=== PATIENT | female | born 2000 | race Caucasian/White ===

== ENCOUNTER 2020-03-03 10:14 | Emergency (ER) | payer OTHER ==
[2020-03-03] MEDS ORDERED: Ondansetron 4 MG/2 ML SDV IVPUSH ONE (10:48)
[2020-03-03] MEDS ORDERED: Dextrose 5%-Lactated Ringers 1,000 ML IV SCH (11:00)
--- NOTE | 2020-03-03 11:11 | EDM.PDOC ---
ED HPI GENERAL MEDICAL PROBLEM - General Chief Complaint: Gastrointestinal Problem Stated Complaint: VOMITING BLOOD Time Seen by Provider: 03/03/20 10:49 Source of Information: Reports: Patient History Limitations: Reports: No Limitations - History of Present Illness INITIAL COMMENTS - FREE TEXT/NARRATIVE: 20-year-old female presents to the ED with recurrent intractable nausea and vomiting starting about 2200 hrs. last night. She reports initial emesis contained a bit of food and then it seemed to turn dark black in color with questionable coffee-ground appearance. This morning the emesis is bright yellow or bilious in color. Patient reports she was out drinking alcohol last evening to excess with multiple different kinds of alcohol. She denies any diarrhea. She believes there was some flecks of blood in her emesis this morning. Does complain of mild headache and fatigue. Onset: Sudden Onset Date: 03/02/20 Onset Time: 22:00 Duration: Minutes: Location: Reports: Abdomen (Upper abdominal pain with recurrent nausea and vomiting.). Denies: Head, Face, Neck, Chest, Back, Pelvis, Lower Extremity, Left Quality: Reports: Ache (Vague pressure in her epigastrium), Other (Waves of nausea.) Severity: Moderate Improves with: Reports: None Worsens with: Reports: Eating (Trying to eat or drink it comes right back up.) Context: Denies: Activity, Exercise, Lifting, Sick Contact, Trauma, Other Associated Symptoms: Reports: Loss of Appetite, Malaise, Nausea/Vomiting, Weakness. Denies: No Other Symptoms, Confusion, Chest Pain, Cough, cough w sputum, Diaphoresis, Fever/Chills, Headaches, Rash, Seizure, Shortness of Breath, Syncope Treatments LEGAL EXECUTIVE: Reports: Other (see below) (None.) Abdominal Pain Score (Numeric/FACES): 3 - Related Data Allergies Allergy/AdvReac Type Severity Reaction Status Date / Time No Known Allergies Allergy Verified 03/03/20 10:24 Home Meds: Home Meds ALPRAZolam [Xanax] 0.5 mg PO QID PRN 03/03/20 [History] Escitalopram Oxalate [Lexapro] 20 mg PO DAILY 03/03/20 [History] Past Medical History - Past Health History Medical/Surgical History: Denies Medical/Surgical History Psychiatric History: Reports: Anxiety, Depression - Infectious Disease History Infectious Disease History: Reports: Novel Coronavirus Social & Family History - Tobacco Use Tobacco Use Status *Q: Never Tobacco User - Caffeine Use Caffeine Use: Reports: Coffee, Energy Drinks, Soda, Tea - Recreational Drug Use Recreational Drug Use: No - Living Situation & Occupation Living situation: Reports: Single Occupation: Employed ED ROS GENERAL - Review of Systems Review Of Systems: See Below Constitutional: Reports: Malaise, Weakness, Fatigue, Decreased Appetite. Denies: Fever, Chills HEENT: Reports: No Symptoms Respiratory: Reports: No Symptoms Cardiovascular: Reports: No Symptoms Endocrine: Reports: Fatigue GI/Abdominal: Reports: Abdominal Pain, Nausea, Vomiting (Intractable nausea and vomiting starting about 2200 hrs. last night.) : Reports: Frequency Musculoskeletal: Reports: No Symptoms Skin: Reports: No Symptoms Neurological: Reports: Headache Psychiatric: Reports: No Symptoms Hematologic/Lymphatic: Reports: No Symptoms Immunologic: Reports: No Symptoms ED EXAM, GI/ABD - Physical Exam Exam: See Below Exam Limited By: No Limitations General Appearance: Alert, WD/WN, Mild Distress, Other (Temperature is 35.9. Heart rate 100 and sinus. Respiratory to 16 with O2 sats 100% room air BP 04/28/1985.) Eyes: Bilateral: Normal Appearance (No scleral icterus or blepharal pallor.) Throat/Mouth: Other Head: Atraumatic (Tongue is moderately dry and coated.), Normocephalic, Other Neck: Normal Inspection, Supple (No outward signs of any head or facial trauma.), Non-Tender, Full Range of Motion. No: Lymphadenopathy (L), Lymphadenopathy (R) Respiratory/Chest: No Respiratory Distress, Lungs Clear, Normal Breath Sounds, No Accessory Muscle Use, Chest Non-Tender Cardiovascular: Normal Peripheral Pulses, Regular Rate, Rhythm, No Edema, No Gallop, No Murmur, No Rub, Tachycardia GI/Abdominal Exam: Normal Bowel Sounds (Borderline tachycardia at rest.), Soft, No Organomegaly, No Mass, Pelvis Stable, Tender. No: Guarding (Tenderness in the epigastrium with no guarding or rebound), Rebound Back Exam: Normal Inspection, Full Range of Motion. No: CVA Tenderness (L), CVA Tenderness (R) Extremities: Normal Inspection, Normal Range of Motion, Non-Tender, No Pedal Edema Neurological: Alert, Oriented, CN II-XII Intact, Normal Cognition Psychiatric: Normal Affect, Normal Mood Skin Exam: Warm, Dry, Intact, Normal Color, No Rash Course - Vital Signs Last Recorded V/S: Last Vital Signs Temp 35.9 C L 03/03/20 10:25 Pulse 100 03/03/20 10:25 Resp 16 03/03/20 10:25 BP 131/86 03/03/20 10:25 Pulse Ox 100 03/03/20 10:25 - Orders/Labs/Meds Labs: Laboratory Tests 03/03/20 03/03/20 03/03/20 Range/Units 11:23 11:23 11:23 WBC 10.21 H (3.98-10.04) K/mm3 RBC 4.93 (3.98-5.22) M/mm3 Hgb 14.7 (11.2-15.7) gm/dl Hct 44.2 (34.1-44.9) % MCV 89.7 (79.4-94.8) fl MCH 29.8 (25.6-32.2) pg MCHC 33.3 (32.2-35.5) g/dl RDW Std Deviation 39.7 (36.4-46.3) fL Plt Count 321 (182-369) K/mm3 MPV 9.6 (9.4-12.3) fl Neut % (Auto) 75.9 H (34.0-71.1) % Lymph % (Auto) 12.9 L (19.3-51.7) % [place] % (Auto) 10.0 (4.7-12.5) % Eos % (Auto) 0.6 L (0.7-5.8) Baso % (Auto) 0.4 (0.1-1.2) % Neut # (Auto) 7.75 H (1.56-6.13) K/mm3 Lymph # (Auto) 1.32 (1.18-3.74) K/mm3 [place] # (Auto) 1.02 H (0.24-0.36) K/mm3 Eos # (Auto) 0.06 (0.04-0.36) K/mm3 Baso # (Auto) 0.04 (0.01-0.08) K/mm3 Manual Slide Review Normal smear Sodium 140 (136-145) mEq/L Potassium 3.8 (3.5-5.1) mEq/L Chloride 104 (98-107) mEq/L Carbon Dioxide 25 (21-32) mEq/L Anion Gap 14.8 (5-15) BUN 11 (7-18) mg/dL Creatinine 1.1 H (0.55-1.02) mg/dL Est Cr Clr Drug Dosing 79.33 mL/min Estimated GFR (MDRD) > 60 (>60) mL/min BUN/Creatinine Ratio 10.0 L (14-18) Glucose 152 H (74-106) mg/dL Calcium 9.1 (8.5-10.1) mg/dL Total Bilirubin 0.8 (0.2-1.0) mg/dL AST 33 (15-37) U/L ALT 102 H (14-59) U/L Alkaline Phosphatase 63 (46-116) U/L Total Protein 7.7 (6.4-8.2) g/dl Albumin 4.2 (3.4-5.0) g/dl Globulin 3.5 gm/dL Albumin/Globulin Ratio 1.2 (1-2) Lipase 78 (73-393) U/L Hepatitis C Antibody Negative (NEGATIVE) Meds: Medications Discontinued Medications Generic Name Dose Route Start Last Admin Trade Name Freq PRN Reason Stop Dose Admin Dextrose/Lactated Ringer's 1,000 mls @ 999 mls/hr 03/03/20 11:00 03/03/20 11:00 Dextrose 5%-Lactated Ringers IV 999 mls/hr ASDIRECTED SYLVESTER Administration Ondansetron HCl 4 mg 03/03/20 10:48 03/03/20 11:00 Zofran IVPUSH 03/03/20 10:49 4 mg ONETIME ONE Administration Ondansetron HCl 4 mg 03/03/20 12:20 03/03/20 12:34 Zofran Odt PO 03/03/20 12:21 4 mg ONETIME ONE Administration - Radiology Interpretation Free Text/Narrative:: 20-year-old female presents to the ED with acute intractable nausea and vomiting since about 20 to 30 hours last night. Patient reports she was out drinking alcohol fairly heavily last night drinking many kinds of alcohol at the same time. When she got home shortly before midnight she started to have vomiting and has been vomiting all night long. Emesis initially contained some food product and then was dark black-brown in color worrisome for coffee-ground emesis. This morning the emesis is more yellow and bilious. Perhaps a few flec ks of blood. Vital signs are otherwise stable. She denies any diarrhea. Diffuse upper abdominal pain from vomiting so much as well as throat discomfort. Clinically she is experiencing acute gastritis from alcohol. She will have routine labs collected including a liver function and serum lipase. IV will be D5 normal saline at open. Zofran 4mg mg IV to arrest vomiting. - Re-Assessments/Exams Free Text/Narrative Re-Assessment/Exam: 03/03/20 12:01 Total white count is 10.21 with 76% neutrophils on the auto differential. Hemoglobin is 14.7 with hematocrit of 44.2. Platelet count 321,000. Sodium 140 with potassium of 3.8 chloride is 104 with a bicarb of 25. Anion gap is 14.8. BUN is 11 with a creatinine of 1.1. GFR is greater than 60. Glucose is 152 with a calcium of 9.1. Total bilirubin 0.8 AST is 33 ALT mildly elevated at 102. Hepatitis screen will be ordered on this lady. Alk phosphatase is 63 with a total protein is 7.7. Albumin fraction is 4.2 globulin fraction 3.5 lipase normal at 78. 03/03/20 13:06 hepatitis C screen was negative. Patient will be discharged to home to continue clear fluids such as Gatorade Powerade and reinstitute a clear fluid diet until later this afternoon. Departure - Departure Time of Disposition: 12:23 Disposition: Home, Self-Care 01 Condition: Fair Clinical Impression: Intractable nausea and vomiting Gastritis due to alcohol without hemorrhage Qualifiers: Chronicity: acute Qualified Code(s): K29.20 - Alcoholic gastritis without bleeding - Discharge Information *PRESCRIPTION DRUG MONITORING PROGRAM REVIEWED*: Not Applicable *COPY OF PRESCRIPTION DRUG MONITORING REPORT IN PATIENT ANKIT: Not Applicable Instructions: Gastritis, Adult, [id number], Nausea and Vomiting, Adult, [id number] Referrals: Leticia Stevens MASSAGE THERAPIST [Primary Care Provider] - Forms: ED Department Discharge Additional Instructions: Evaluation in the emergency room this morning in regards to intractable nausea and vomiting starting late last night and continuing throughout the day. Initial emesis was dark black in color and likely represented very digested food. Since the emesis this morning was more bright yellow in color this suggest there was no gastrointestinal hemorrhage. You were treated with a liter of IV fluids to provide rehydration and medication to stop vomiting. Suggest clear fluids at home today such as dilute Gatorade or Powerade. Suggest staying away from fatty foods. Light diet such as crackers. Jam on toast. [place] rice/chicken noodle soup and then advance diet as tolerated. Usually by tonight you are able to tolerate a fairly regular diet. May repeat Zofran 4 mg under your tongue at any time after 1400 hrs. today if there is any further nausea. Of note the lab test did not reveal that your liver or pancreas were sick from alcohol today. Sepsis Event Note (ED) - Evaluation Sepsis Screening Result: Possible Sepsis Risk - Focused Exam Vital Signs: Vital Signs Temp Pulse Resp BP Pulse Ox 03/03/20 10:25 35.9 C L 100 16 131/86 100
[2020-03-03] MEDS ORDERED: Ondansetron 4 MG Tab.DIS PO ONE (12:20)
== END 2020-03-03 12:35 | disposition home or self-care (01) ==
LOC: JD.ED 10:14
DX: K29.20 Alcoholic gastritis without bleeding (principal); R00.0 Tachycardia, unspecified; F41.9 Anxiety disorder, unspecified; F32.9 Major depressive disorder, single episode, unspecified; Z79.899 Other long term (current) drug therapy
CPT/HCPCS: 36415; 80053; 83690; 85025; 86803; 96374; 99284; A9270; J2405; J7121

== ENCOUNTER 2024-09-16 18:12 | Emergency (ER) | payer BC ==
[2024-09-16 19:46] LABS: BASOPHILS ABSOLUTE AUTO 0.1 K/mm3 (0.0-0.2); BASOPHILS PERCENT AUTO 0.4 % (0.0-1.0); EOSINOPHILS ABSOLUTE AUTO 0.1 K/mm3 (0.0-0.4); EOSINOPHILS PERCENT AUTO 0.7 % (0.0-6.0); HEMATOCRIT 43.3 % (37.0-47.0); HEMOGLOBIN 14.9 gm/dl (12.0-16.0); IMMATURE GRAN ABSOLUTE AUTO 0.04 K/mm3 (0.00-0.05); IMMATURE GRAN PERCENT AUTO 0.4 % (0.0-0.4); LYMPHOCYTES ABSOLUTE AUTO 3.1 K/mm3 (1.0-4.8); LYMPHOCYTES PERCENT AUTO 27.5 % (24.0-44.0); MEAN CORPUSCULAR HEMOGLOBIN 30.7 pg (28.0-32.0); MEAN CORPUSCULAR HGB CONC 34.4 g/dl (32.0-36.0); MEAN CORPUSCULAR VOLUME 89.1 fl (83.0-99.0); MONOCYTES ABSOLUTE AUTO 0.9 K/mm3 (0.0-0.8); MONOCYTES PERCENT AUTO 7.9 % (0.0-8.0); NEUTROPHILS ABSOLUTE AUTO 7.1 K/mm3 (1.8-7.7); NEUTROPHILS PERCENT AUTO 63.1 % (41.0-71.0); PLATELET COUNT,PLT 286 K/mm3 (150-400); RED BLOOD CELL COUNT 4.86 M/mm3 (4.10-5.30); WHITE BLOOD CELL COUNT,WBC 11.22 K/mm3 (3.9-11.3)
[2024-09-16 19:57] LABS: A/G RATIO 1.4 (1-2); ALANINE AMINOTRANSFERASE,ALT 17 U/L (14-59); ALBUMIN 4.5 g/dl (3.4-5.0); ALKALINE PHOSPHATASE 46 U/L (46-116); ANION GAP 18.6 (5-15); ASPARTATE AMNIOTRANSFERASE,AST 14 U/L (15-37); BLOOD UREA NITROGEN,BUN 16 mg/dL (7-18); BUN/CREATININE RATIO 14.5 (14-18); C-REACTIVE PROTEIN <0.05 mg/dL (<0.30); CALCIUM 9.2 mg/dL (8.5-10.1); CARBON DIOXIDE,CO2 22 mEq/L (21-32); CHLORIDE,CL 100 mEq/L (98-107); CREATININE 1.1 mg/dL (0.55-1.02); EST CRCL DRUG DOSING (CG) 76.69 mL/min; ESTIMATED GFR 72 mL/min (>60); GLUCOSE RANDOM 123 mg/dL (70-99); POTASSIUM,K 3.6 mEq/L (3.5-5.1); PROTEIN TOTAL,TP 7.7 g/dl (6.4-8.2); SODIUM,NA 137 mEq/L (136-145)
[2024-09-16 19:58] LABS: APPEARANCE,URINE CLEAR (Clear); BILIRUBIN,URINE NEGATIVE (Negative); COLOR,URINE YELLOW (Yellow); GLUCOSE,URINE NEGATIVE (Negative); KETONES,URINE 4+ (Negative); LEUKOCYTE ESTERASE,URINE NEGATIVE (Negative); NITRITE,URINE NEGATIVE (Negative); OCCULT BLOOD,URINE 2+ (Negative); PH,URINE 6.5 (5.0-8.0); PROTEIN,URINE 1+ (Negative); UROBILINOGEN,URINE 0.2 (0.2-1.0)
[2024-09-16 20:07] LABS: RBC,URINE 20-30 /hpf (0-5); WBC,URINE 0-5 /hpf (0-5)
[2024-09-16 20:08] LABS: BACTERIA,URINE FEW /hpf (FEW); MUCUS,URINE MANY /hpf (FEW); SQUAMOUS EPITHELIAL CELLS,UR 0-5 /hpf (0-5)
[2024-09-16] MEDS ORDERED: Sodium Chloride 0.9% 10 ML Syringe FLUSH PRN (20:10)
[2024-09-16] MEDS ORDERED: Iopamidol 755 Mg/ML 100 ML Bottle IVPUSH ONE (20:10)
[2024-09-16] MEDS ORDERED: Sodium Chloride 0.9% 45 ML IV SCH (20:15)
[2024-09-16] MEDS: Sodium Chloride 0.9% 1,000 ML IV STA (20:28)
[2024-09-16] MEDS: Magnesium Citrate Solution 296 ML Bottle PO ONE (22:18)
== END 2024-09-16 22:20 | disposition home or self-care (01) ==
LOC: JD.ED 18:12
DX: K59.00 Constipation, unspecified (principal); Z79.899 Other long term (current) drug therapy
CPT/HCPCS: 36415; 74177; 80053; 81001; 81025; 85025; 86140; 96360; 99284; J7030